=== PATIENT | male | born 1940 | race Caucasian/White ===

== ENCOUNTER 2019-04-01 04:48 | Inpatient (IN) ==
[2019-03-26 12:11] LABS: Appearance,Urine HAZY; Bilirubin,Urine NEG (NEG); Color,Urine YELLOW; Culture Indicated,Urine NO; Glucose,Urine (UA) NEGATIVE (NEG); Ketones,Urine NEG (NEG); Leukocyte Esterase,Urine NEG /uL (NEG); Nitrate,Urine NEG (NEG); Protein,Urine NEG (NEG); Specific Gravity,Urine 1.017 (1.000-1.035); Urine Blood NEG mg/dL (<0.03); Urobilinogen,Urine NEG (NEG)
[2019-03-26 12:31] LABS: Basophils # (Auto) 0 K/mcL (0.0-0.3); Basophils % (Auto) 0.5 % (0.0-2.0); Eosinophils # (Auto) 0.4 K/mcL (0.0-0.7); Granulocytes % (Auto) 67.3 % (38.0-78.0); Hematocrit 36.5 % (41.0-55.0); Hemoglobin 12.1 g/dL (13.5-16.5); Lymphocytes # (Auto) 1.6 K/mcL (1.5-4.8); Lymphocytes % (Auto) 17.6 % (15.5-49.0); Mean Cell Volume 96.2 fL (80.0-100.0); Mean Corpuscular HGB Conc 33.1 g/dL (31.0-36.0); Mean Platelet Volume 8.7 fL (7.4-10.4); Monocytes # (Auto) 0.9 K/mcL (0.1-0.9); Monocytes % (Auto) 10.6 % (1.0-12.0); Platelet Count 341 K/mcL (140-440); RBC 3.79 M/mcL (4.50-5.90); Red Cell Distribution Width 13.9 % (11.5-14.5); WBC 8.8 K/mcL (4.5-11.0)
[2019-03-26 12:38] LABS: Blood Urea Nitrogen 23 mg/dl (8-23); Calcium 9.5 mg/dl (8.6-10.4); Carbon Dioxide 23 mmol/L (22-30); Chloride 98 mmol/L (96-108); Glomerular Filtration Rate 72; Glucose 87 mg/dL (70-105)
[2019-03-26 12:43] LABS: Prothrombin Time 13.7 sec (11.9-14.5)
[2019-03-26 14:31] LABS: Estimated Average Glucose(eAG) 123 mg/dL; Hemoglobin A1C 5.9 % HGB (4.0-6.0)
[~2019-04-01 04:48] MED LIST: IPRATROPIUM/ALBUTEROL 3 ML AMPUL.NEB NEB PRN; SCOPOLAMINE 1 PATCH PATCH TOPICAL PRN
[2019-04-01] MEDS ORDERED: oxyCODONE 10 MG TAB.ER.12H PO SCH (06:00)
[2019-04-01] MEDS ORDERED: CELECOXIB 200 MG CAPSULE PO SCH (06:00)
[2019-04-01] MEDS ORDERED: 0.9 % SODIUM CHLORIDE 9 ML, KETOROLAC 30 MG, ROPIVACAINE HCL/PF 49.5 ML, EPINEPHrine 0.... IJ SCH (06:00)
[2019-04-01] MEDS ORDERED: PREGABALIN 75 MG CAPSULE PO SCH (06:00)
[2019-04-01] MEDS ORDERED: ACETAMINOPHEN 500 MG TABLET PO SCH (06:00)
[2019-04-01] MEDS ORDERED: ceFAZolin 2 GM in DEXTROSE 5% IN WATER 50 ML IV SCH (06:00)
[2019-04-01] MEDS ORDERED: SCOPOLAMINE 1 PATCH PATCH TOPICAL PRN (07:00)
[2019-04-01] MEDS ORDERED: IPRATROPIUM/ALBUTEROL 3 ML AMPUL.NEB NEB PRN ×2 (07:00→09:57)
[2019-04-01] MEDS ORDERED: SUGAMMADEX SODIUM 200 MG/2 ML VIAL IV ONE (07:40)
[2019-04-01] MEDS ORDERED: KETAMINE 100 MG/ML ML IV ONE (07:40)
[2019-04-01] MEDS ORDERED: GLYCOPYRROLATE 0.2 MG/ML VIAL IV ONE (07:40)
[2019-04-01] MEDS ORDERED: MIDAZOLAM 2 MG/2 ML VIAL IV ONE (07:40)
[2019-04-01] MEDS ORDERED: ROPIVACAINE HCL/PF 30 ML VIAL IJ ONE (07:40)
[2019-04-01] MEDS ORDERED: ROCURONIUM 10 MG/ML ML IV ONE (07:40)
[2019-04-01] MEDS ORDERED: ONDANSETRON 4 MG/2 ML VIAL IV ONE (07:40)
[2019-04-01] MEDS ORDERED: LIDOCAINE HCL/PF 100 MG/5 ML SYRINGE IV ONE (07:40)
[2019-04-01] MEDS ORDERED: TRANEXAMIC ACID 1,000 MG/10 ML VIAL IV ONE (07:40)
[2019-04-01] MEDS ORDERED: PROPOFOL 200 MG/20 ML VIAL IV ONE (07:40)
[2019-04-01] MEDS ORDERED: fentaNYL 100 MCG/2 ML VIAL IV ONE (07:40)
[2019-04-01] MEDS ORDERED: GENTAMICIN SULFATE 800 MG/20 ML VIAL IR ONE (08:27)
--- NOTE | 2019-04-01 09:10 | Brief Operative Note ---
Date of procedure: 04/01/19 Pre-op diagnosis: Right shoulder rca Post-op diagnosis: same Procedure: Right shoulder reverse tsa Grafts/Implants: Yes Anesthesia: GETA Complications Description: 04/01/19 09:10 none Surgeon: Adrian Crouch Nickel Plater: Josué Guzman Estimated blood loss (cc): 100 Specimens Removed/Pathology: none sent Condition: stable Disposition: PACU
[2019-04-01] MEDS ORDERED: TRANEXAMIC ACID 1,000 MG/10 ML VIAL IV SCH (09:12)
[2019-04-01] MEDS ORDERED: POLYETHYLENE GLYCOL 3350 17 GM PACKET PO PRN (09:12)
[2019-04-01] MEDS ORDERED: BISACODYL 10 MG SUPP.RECT PR PRN (09:12)
[2019-04-01] MEDS ORDERED: KETOROLAC 15 MG/ML VIAL IV PRN (09:12)
[2019-04-01] MEDS ORDERED: ACETAMINOPHEN 325 MG TABLET PO PRN (09:12)
[2019-04-01] MEDS ORDERED: ONDANSETRON 4 MG/2 ML VIAL IV PRN ×2 (09:12→09:57)
[2019-04-01] MEDS ORDERED: MAGNESIUM HYDROXIDE 30 ML ORAL.SUSP PO PRN (09:12)
[2019-04-01] MEDS ORDERED: HYDROmorphone 2 MG/ML VIAL IV PRN (09:12)
[2019-04-01] MEDS ORDERED: FLEETS ADULT ENEMA PR PRN (09:12)
[2019-04-01] MEDS ORDERED: ALBUTEROL SULFATE 1 PUFF INHALER IH PRN (09:14)
[2019-04-01] MEDS ORDERED: MEPERIDINE 25 MG/ML SYRINGE IV PRN (09:57)
[2019-04-01] MEDS ORDERED: METHOCARBAMOL 1,000 MG/10 ML VIAL IV PRN (09:57)
[2019-04-01] MEDS ORDERED: fentaNYL 100 MCG/2 ML VIAL IV PRN (09:57)
[2019-04-01] MEDS ORDERED: LACTATED RINGERS 1,000 ML IV SCH (10:00)
--- NOTE | 2019-04-01 10:04 | XRay Report ---
CLINICAL INFORMATION: Postsurgical follow-up TECHNIQUE: AP and transscapular Y view COMPARISON: None. FINDINGS: Status post right reverse shoulder arthroplasty. Alignment is anatomic. There is postsurgical soft tissue and intra-articular gas IMPRESSION: Reverse shoulder arthroplasty as above Interpreted and Authenticated by: Rd Francis 04/01/19
[2019-04-01] MEDS: 0.45 % SODIUM CHLORIDE 1,000 ML IV SCH ×2 (10:29→21:25)
[2019-04-01] MEDS: 0.9 % SODIUM CHLORIDE 10 ML SYRINGE IV SCH ×2 (13:38→22:12)
[2019-04-01] MEDS: ceFAZolin 1 GM VIAL IV SCH ×2 (14:30→23:24)
[2019-04-01] MEDS: oxyCODONE/APAP 5/325MG TABLET PO PRN ×2 (16:56→21:09)
[2019-04-01] MEDS: metFORMIN 500 MG TAB.XL.24H PO SCH (16:56)
[2019-04-01] MEDS ORDERED: TEMAZEPAM 15 MG CAPSULE PO PRN (21:00)
[2019-04-01] MEDS ORDERED: TERAZOSIN 5 MG CAPSULE PO SCH (21:00)
[2019-04-01] MEDS ORDERED: AMITRIPTYLINE 25 MG TABLET PO SCH (21:00)
[2019-04-01] MEDS ORDERED: SENNOSIDES 1 TABLET PO SCH (21:00)
[2019-04-01] MEDS: DOCUSATE SODIUM 100 MG CAPSULE PO SCH (21:10)
[2019-04-01] MEDS: GEMFIBROZIL 600 MG TABLET PO SCH (21:11)
[2019-04-01] MEDS: BENZOCAINE/MENTHOL 1 LOZENGE PO PRN ×2 (22:21→23:10)
[2019-04-02] MEDS: BENZOCAINE/MENTHOL 1 LOZENGE PO PRN (04:07)
[2019-04-02] MEDS: 0.45 % SODIUM CHLORIDE 1,000 ML IV SCH (05:27)
[2019-04-02] MEDS: 0.9 % SODIUM CHLORIDE 10 ML SYRINGE IV SCH (05:27)
[2019-04-02] MEDS: oxyCODONE/APAP 5/325MG TABLET PO PRN ×2 (05:29→09:11)
--- NOTE | 2019-04-02 07:27 | Orthopedic Progress Note ---
Subjective Patient information: Note initiated : 04/02/19 at 7:25 am Service Date, if different from initiated Date: [] Patient: Titi Ricardo 78 y/o M admitted on 04/01/19 for Right Reverse Total Shoulder Arthroplasty with. Chief Complaint: [Pt is stable this morning on post operative day 1 without any significant concerns or complaints. Patients vital signs have remained stable. Patients dressing is dry and is grossly intact from a herb rovascular and motor standpoint. Patients 10 point ROS is otherwise negative. ] Objective Vital signs: Vital Signs Temp Pulse Pulse Resp BP Pulse Ox 04/02/19 07:04 98.7 F 80 18 130/69 93 04/02/19 04:56 99.1 F H 84 20 139/64 92 04/02/19 00:00 68 04/01/19 23:12 99.4 F H 77 20 141/70 90 04/01/19 19:23 98.2 F 82 20 138/72 91 04/01/19 16:00 97.7 F 63 18 135/65 95 04/01/19 13:05 65 129/62 96 04/01/19 12:05 63 125/70 96 04/01/19 11:35 61 122/69 94 04/01/19 11:05 62 132/64 94 04/01/19 10:50 56 L 115/63 94 04/01/19 10:35 60 128/60 92 04/01/19 10:20 97.6 F 67 88/60 92 04/01/19 10:16 97.3 F 64 12 112/51 95 04/01/19 10:01 97.3 F 72 11 L 102/55 98 04/01/19 09:46 97.3 F 74 14 105/54 98 04/01/19 09:31 97.4 F 74 16 95/43 97 04/01/19 09:26 75 17 99/46 97 04/01/19 09:21 76 12 109/49 98 04/01/19 09:16 98.0 F 76 13 104/45 98 Intake and Output 04/01/19 04/02/19 04/02/19 21:59 05:59 13:59 Intake Total 2440 300 Output Total 1275 Balance 1165 300 Intake: IV 1000 Sodium Chloride 0.45% 1,000 ml 1000 @ 100 mls/hr IV .Q10H WILLIAM Rx#: [id number] Oral 1440 300 Output: Void Amount 1275 Other: Meal Dinner Feeding Ability Independent Nourishment/Supplement name eat good Urine Appearance Clear Urine Color Bright Yellow Bright Yellow Urine Odor Normal Weight 230 lb 8 oz Intake & Output: Intake & Output 04/01/19 04/02/19 04/02/19 21:59 05:59 13:59 Intake Total 2440 300 Output Total 1275 Balance 1165 300 Weight 230 lb 8 oz Intake: IV 1000 Sodium Chloride 0.45% 1,000 ml 1000 @ 100 mls/hr IV .Q10H WILLIAM Rx#: [id number] Oral 1440 300 Output: Void Amount 1275 Other: Meal Dinner Feeding Ability Independent Nourishment/Supplement name eat good Urine Appearance Clear Urine Color Bright Yellow Bright Yellow Urine Odor Normal Incision: Yes healing Incision clean and dry: Yes Dressing: Yes clean Neurological exam IM: Yes motor sensory intact, Yes neurovascular intact Extremities exam IM: Yes Foot pink and warm, Yes neurovascular intact - Labs CBC & BMP: 03/26/19 10:08 03/26/19 10:07 Labs: Orthopedic Labs 03/26/19 10:08 PT 13.7 INR 1.0 APTT 35 03/26/19 10:08 Hgb 12.1 L Hct 36.5 L Assessment and Plan (1) History of reverse total replacement of right shoulder joint The patient has been educated regarding dressing care, Physical Therapy recommendations, home exercises, restrictions, and follow up appointments. The patient has had all necessary DME prescribed. The patient has remained relatively stable during their hospital course. Leave Dermabond patch intact until followup Status: Acute
--- NOTE | 2019-04-02 07:29 | Discharge Summary ---
Ortho Discharge - TSA - Patient Instructions Diet: Regular Diet Activity: activity as tolerated, weight bearing as tolerated Total Shoulder Protocol: Leave immobilizer in place except for bathing and ROM. Abduction pillow. Continue to wear sling until seen by physician. Codman Pendulum : These exercises use momentum produced by your body to move your shoulder joint. Bend your knees and shift your weight to your front leg, then back, allowing your arm to swing in the same directions. Using the same technique, alternately shift your weight between your right and left legs, allowing your arm to swing from side to side. These exercises are also performed in counterclockwise and clockwise circular motions. Typically these exercises are performed several times per day, for a set number repetitions or minutes, such as 20 times in a row or 5 minutes at a time. Dressing Care: May shower in 2 days - Problem Maintenance (1) History of reverse total replacement of right shoulder joint Status: Acute - Follow Up Plan Follow Up Appointments: Josué Guzman PA-C [Physician Administrative Support Associate] - 04/16/19 11:20 am Disposition: Home, Self-Care Prognosis: Good Rehab Potential: Good I certify that the patient requires SNF services: No Overall status at discharge: patient is progressing back to baseline - Orders For Discharge Prescriptions: Docusate Sodium [Colace] 100 mg PO BID #60 cap oxyCODONE/APAP [Percocet 5-325 mg] 1 - 2 tab PO Q4HP PRN #75 tab PRN Reason: Pain Level 3-6
[2019-04-02] MEDS: metFORMIN 500 MG TAB.XL.24H PO SCH (07:53)
[2019-04-02] MEDS: DOCUSATE SODIUM 100 MG CAPSULE PO SCH (07:53)
[2019-04-02] MEDS: GEMFIBROZIL 600 MG TABLET PO SCH (07:53)
[2019-04-02] MEDS ORDERED: LOSARTAN 50 MG TABLET PO SCH (09:00)
[2019-04-02] MEDS ORDERED: ALLOPURINOL 300 MG TABLET PO SCH (09:00)
[2019-04-02] MEDS ORDERED: TRIAMTERENE/HYDROCHLOROTHIAZID 1 CAP CAPSULE PO SCH (09:00)
--- NOTE | 2019-04-02 09:58 | Operative Note ---
DATE OF OPERATION: 04/01/2019 PREOPERATIVE DIAGNOSIS: Right shoulder rotator cuff arthropathy. POSTOPERATIVE DIAGNOSIS: Right shoulder rotator cuff arthropathy. PROCEDURE: Right reverse total shoulder and biceps tenodesis. SURGEON: Adrian Crouch MD SEED YEAST OPERATOR: Josué Guzman PA-C. This provider's expertise and technical skill were required throughout the case. The RAMYA assisted with preoperative coordination, intraoperative retraction, wound closure, dressing and splint application, as well as postoperative documentation and care coordination. ANESTHESIA: General LMA anesthesia. COMPLICATIONS: None. ANTIBIOTICS GIVEN: Preop antibiotics and tranexamic acid were given. ESTIMATED BLOOD LOSS: About 100 mL DESCRIPTION OF PROCEDURE: The patient was brought to the operating room and put to sleep with general anesthesia. Once asleep, the patient had Ioban placed over the skin after a timeout performed. Deltopectoral interval was performed, retracting the deltoid and cephalic vein laterally. We released the subscap and the biceps tendon. At this point, the biceps tendon was repaired with [id number] stitches x2. The bony cut for the humeral head was then made at the surgical neck region and a protective plate placed. The humeral head was subluxed posteriorly. Retractors were placed. We performed a 360 degree capsular release with removal of the biceps tendon. A pin was placed centrally in the glenoid and reamed up to the size 40. We did use a 36 mm glenosphere with 2 mm of offset and 2 mm of eccentricity. Once this was positioned with the glenosphere and the appropriate screws to keep it very secure, we then prepared the humeral side. The humeral side was then we prepared with broaching. We broached up to the appropriate size and then trialed the standard thickness poly. We had added thickness because of the tension. We then were able to irrigate thoroughly and placed a small amount of cement on the humeral side. Distally the proximal portion was to be grown in with bone, which was cementless. We placed the appropriate thickness poly and tensioned the deltoid perfectly and made the shoulder perfectly stable and had full range of motion. We irrigated thoroughly and then we were able to irrigate and repair the deltopectoral interval with 2-0 Vicryl and closed the skin with 2-0 Vicryl and adhesive closure. The patient tolerated this well. A DonJoy sling was fitted and given to the patient. BUFFY:gianni Job ID: [id number] Doc ID: [id number] Adrian Crouch MD
== END 2019-04-02 09:40 | disposition home or self-care (01) | DRG 483 ==
LOC: MEDSUR 04:48
PROVIDERS: ADMIT Orthopaedic Surgery; ATTEND Orthopaedic Surgery